=== PATIENT | male | born 1965 | race Two or more races ===

== ENCOUNTER 2019-05-03 09:08 | Emergency (ER) | payer BC, OTHER ==
[2019-05-03 09:18] VITALS: TEMP 98.4; BMI 25.0
[2019-05-03] MEDS ORDERED: PANTOPRAZOLE 40 MG TABLET ONE (09:49)
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
[2019-05-03] MEDS ORDERED: SODIUM CHLORIDE 1,000 ML IV STA (10:36)
[2019-05-03] MEDS ORDERED: ACETAMINOPHEN 1000 MG/100 ML VIAL (NON FORMULARY) IVPB ONE (10:36)
[2019-05-03] MEDS ORDERED: chlordiazePOXIDE HCL 25 MG CAPSULE PO ONE (10:36)
[2019-05-03] MEDS ORDERED: chlordiazePOXIDE HCL 25 MG CAPSULE ONE (10:40)
[2019-05-03] MEDS ORDERED: ACETAMINOPHEN INJECTION 100 ML IVPB ONE (10:41)
[2019-05-03 11:15] LABS: HEMATOCRIT 43.3 % (35.4-49); HEMOGLOBIN 14.6 GM/dL (11.7-16.9); MCH 30.7 pg (25.7-33.7); MCHC 33.8 g/dl (32.0-35.9); MEAN CELL VOLUME 90.9 fl (80-96); MEAN PLT VOLUME 8.6 fl (7.5-11.1); PLATELET COUNT 159 K/MM3 (134-434); RBC 4.77 M/mm3 (4.00-5.60); RDW 13.7 % (11.9-15.9); WHITE BLOOD COUNT 6.3 K/mm3 (4.0-10.0)
[2019-05-03 11:38] LABS: ALK PHOS 59 U/L (45-117); ANION GAP 6 MMOL/L (8-16); BILIRUBIN,TOTAL 0.3 mg/dL (0.2-1); BLOOD UREA NITROGEN 11.4 mg/dL (7-18); CHLORIDE 105 mmol/L (98-107); CO2 27 mmol/L (21-32); CREATININE 0.9 mg/dL (0.55-1.3); GLUCOSE,RANDOM 102 mg/dL (74-106); INR 0.94 (0.83-1.09); PROTHROMBIN TIME (PATIENT) 11.1 SEC (9.7-13.0); SGOT/AST 23 U/L (15-37); SGPT/ALT 37 U/L (13-61); SODIUM 137 mmol/L (136-145); TOT PROT 7.4 g/dl (6.4-8.2)
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
--- NOTE | 2019-05-03 12:50 | EKG ---
Test Reason : Blood Pressure : / mmHG Vent. Rate : 094 BPM Atrial Rate : 094 BPM P-R Int : 158 ms QRS Dur : 080 ms QT Int : 336 ms P-R-T Axes : 051 -13 018 degrees QTc Int : 420 ms NORMAL SINUS RHYTHM NORMAL ECG NO PREVIOUS ECGS AVAILABLE Confirmed by MINH MAYEN MD ([id number]) on 05/03/2019 12:50:35 PM Referred By: Confirmed By:MINH MAYEN MD
[2019-05-03] MEDS ORDERED: KETOROLAC TROMETHAMINE 15 MG/ML VIAL IVPUSH ONE (13:41)
[2019-05-03] MEDS ORDERED: KETOROLAC TROMETHAMINE 15 MG/ML VIAL ONE (13:47)
[2019-05-03 14:07] VITALS: BP 134/78; PULSE 74
== END 2019-05-03 14:00 | disposition home or self-care (01) ==
LOC: JER 09:08
PROC: 3E033NZ Introduction of Analgesics, Hypnotics, Sedatives into Peripheral Vein, Percutaneous Approach (ICD-10-PCS; principal; 2019-05-03)
PROC: 3E0333Z Introduction of Anti-inflammatory into Peripheral Vein, Percutaneous Approach (ICD-10-PCS; 2019-05-03)
DX: S20.212A Contusion of left front wall of thorax, initial encounter (principal); W01.0XXA Fall on same level from slipping, tripping and stumbling without subsequent striking against object, initial encounter; Y93.89 Activity, other specified; Y92.414 Local residential or business street as the place of occurrence of the external cause; Y99.8 Other external cause status; F10.10 Alcohol abuse, uncomplicated
CPT/HCPCS: 36415; 70450-TC; 71045-TC-FY; 71260-TC; 74177-TC; 80053; 83690; 84484; 85027; 85610; 93005; 93010; 99283-25; J0131; J7030; Q9967